=== PATIENT | female | born 1995 | race Caucasian/White ===

== ENCOUNTER → 2017-05-05 15:28 | Outpatient (CLI) | payer BC, SELFPAY ==
[2017-05-09 08:41] LABS: Lamotrigine (Lamictal) Level 2.5 ug/mL (2.0-20.0)
== END ==
PROVIDERS: Visit Provider Psychiatry & Neurology Neurology
DX: R56.9 Unspecified convulsions (principal)
CPT/HCPCS: 36415; 82542